=== PATIENT | male | born 1985 | race African-American/Black ===

== ENCOUNTER 2020-12-31 02:57 | Emergency (ER) | payer SELFPAY ==
[~2020-12-31] VITALS: Ht 180.3 cm; Wt 81.6 kg
[2020-12-31 03:00] VITALS: BP 148/92
== END 2020-12-31 03:11 | disposition left against medical advice (07) ==
LOC: ER 03:00
DX: Z53.21 Procedure and treatment not carried out due to patient leaving prior to being seen by health care provider (principal); R52 Pain, unspecified

== ENCOUNTER 2021-02-22 00:28 | Emergency (ER) | payer OTHER ==
[~2021-02-22] VITALS: Ht 175.3 cm; Wt 81.6 kg
[2021-02-22 00:28] VITALS: BP 136/84
== END 2021-02-22 02:22 | disposition home or self-care (01) ==
LOC: ER 00:30
DX: S93.492A Sprain of other ligament of left ankle, initial encounter (principal); R07.89 Other chest pain; F15.10 Other stimulant abuse, uncomplicated; X58.XXXA Exposure to other specified factors, initial encounter; Y93.89 Activity, other specified; Y92.89 Other specified places as the place of occurrence of the external cause; Y99.8 Other external cause status
CPT/HCPCS: 73610-TC

== ENCOUNTER 2021-10-09 17:55 | Emergency (ER) | payer OTHER ==
[~2021-10-09] VITALS: Ht 175.3 cm; Wt 81.6 kg
[2021-10-09] MEDS ORDERED: ACET-2605 PO (19:20)
[2021-10-09 21:09] VITALS: BP 131/76
== END 2021-10-09 21:10 ==
LOC: ER 17:57
DX: S09.90XA Unspecified injury of head, initial encounter (principal); Y08.89XA Assault by other specified means, initial encounter; Y93.89 Activity, other specified; Y92.89 Other specified places as the place of occurrence of the external cause; Y99.8 Other external cause status
CPT/HCPCS: 70450-TC; 72125-TC